=== PATIENT | female | born 1980 | race African-American/Black ===

== ENCOUNTER 2016-11-29 13:20 | Emergency (ER) | payer OTHER ==
[~2016-11-29] VITALS: Ht 162.6 cm; Wt 86.6 kg
[2016-11-29] MEDS ORDERED: VENTOLIN HFA 1818 GM INH (13:37)
[2016-11-29] MEDS ORDERED: IRON325 PO (13:37)
[2016-11-29] MEDS ORDERED: OXYCODONE HCL15 MG PO (13:37)
[2016-11-29] MEDS ORDERED: PHENERGAN 25 MG25 M1 PO (15:21)
[2016-11-29] MEDS ORDERED: PERCOCET 5-3251 EACH PO (15:21)
[2016-11-29 16:00] VITALS: BP 189/110
[2016-12-06] MEDS ORDERED: SENOKOT-S1 TA1 PO (22:50)
[2016-12-06] MEDS ORDERED: NORCO 5-325 TA1 EACH PO (23:02)
== END 2016-11-29 16:28 | disposition home or self-care (01) ==
LOC: ER 13:20
DX: D57.00 Hb-SS disease with crisis, unspecified (principal); J45.909 Unspecified asthma, uncomplicated; Z88.5 Allergy status to narcotic agent; Z88.1 Allergy status to other antibiotic agents; Z88.0 Allergy status to penicillin; Z88.8 Allergy status to other drugs, medicaments and biological substances; F17.200 Nicotine dependence, unspecified, uncomplicated; F15.90 Other stimulant use, unspecified, uncomplicated

== ENCOUNTER 2016-12-07 11:23 | Inpatient (IN) | payer OTHER ==
[~2016-12-07] VITALS: Ht 162.6 cm; Wt 86.6 kg
--- NOTE | ~2016-12-07 | HC ---
[facility] [place] [address] CONSULTATION Name: RAULITO CHAVEZ Room #: 418-P [facility] IN M.R.#: [id number] Admission: 12/07/16 Attend Phys: Ki Gayle DO Discharge: 12/08/16 Date of : 82 Report #: [id number] THIS REPORT FOR: //name// CC: Dr. Ki Patten FAM unknown Ki Gayle DO ADMITTING PHYSICIAN: Ki Gayle DO. PRIMARY CARE PHYSICIAN: Dr. Ki Patten over at [facility]. REASON FOR CONSULTATION: Sickle cell crisis. HISTORY OF PRESENT ILLNESS: The patient is a 36-year-old female with a history of life-long sickle cell, who says that her pain worsened over the last several days after her aunt and also a cousin was murdered. She describes her usual pain as in the chest and abdomen. It also quite often goes to her legs. She describes about 15-20 emergency room visits a year. She does use oxycodone at home. She also reports that she had a history of about 10 years ago on a trial of Hydrea for years that did not work and also something else with sulfate, which I am not sure what that medication was. She denied any fevers or any chills. Did have some slight nausea. No vomiting. No blood in urine or stool. No diarrhea, if I understand correctly. No change in appetite. No nasal suggestions or upper respiratory infection symptoms. No trouble swallowing. No shortness of breath, no wheezing, no chest pain. No urinary frequency or blood in the urine. Does have the aches and pains. No skin rash. Has noticed a small bump underneath the skin in the suprapubic region and I think this is probably like a gland. She states this may be infected; I do not see redness. PAST MEDICAL HISTORY: Past history is notable for the sickle cell disease. She says she has been aware of it all of her life. Again, there are about 15-20 ER visits per year, had the trial of Hydrea when she was down in [place]. Last transfusion was about 4 years ago. It sounds like she had very few transfusions. The patient has a history of sickle cell disease. 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 The patient had declined followup at [facility] in the past, but she did not like their policy about no marijuana usage and I guess she uses marijuana on a somewhat regular basis and also continues to smoke. FAMILY HISTORY: Father from complications of diabetes. Mother at the young age from a heart attack. She has 8 siblings; she is the baby, the youngest one. Three of her siblings have sickle cell disease, one with sickle cell trait and one from a pulmonary embolism. She has 4 children, a 12-year-old with sickle cell disease and I believe, that is a girl; also, a [facility] [address] [address] CONSULTATION Name: RAULITO CHAVEZ Room #: 418-P [facility] IN M.R.#: [id number] Admission: 12/07/16 Attend Phys: Ki Gayle DO Discharge: 12/08/16 Date of : 82 Report #: [id number] 12-year-old, a 7-year-old and a 3-year-old. The 3-year-old has had a DISABILITY EXAMINER shunt, was born prematurely at 25 . ALLERGIES: Reportedly troubles with MORPHINE, maybe ZOFRAN, maybe PENICILLIN and maybe COMPAZINE. Note the patient had been seen in the emergency room here on the and received Percocet and promethazine. Note I have records that she was seen at the Emergency Room on November 30. There she told them that she had previously been managed mostly in [place]. I am not sure if this is true; the patient did not mention [place] to me. PHYSICAL EXAMINATION: VITAL SIGNS: Height is 5 feet 4, 162.6 cm. Weight 191 pounds, it is 86.6 kilograms. Blood pressure is 178/111. It has been elevated through most of the night. O2 sat 96%, respirations 16, pulse 84 and temperature afebrile at 97.5. MOOD: She is pleasant, though somewhat irritated when we ask questions about noncompliance and raise the question about disconnecting her IV fluids, but she was still pleasant. NEUROLOGIC: Face is symmetrical. She is moving all extremities. Oropharynx clear. LUNGS: Clear, without wheezes, rhonchi or rales. CARDIAC: Regular rate. No definite murmurs. LYMPHATICS: No enlarged lymph nodes in the supraclavicular, cervical, axillary or inguinal region. ABDOMEN: Feels fairly soft. No organomegaly. GENITOURINARY: The suprapubic area the patient talks does feel like it may be a subcutaneous cyst of some type. It is maybe about dime sized. It is probably about a centimeter deep. No cutaneous changes that I could see. EXTREMITIES: Without clubbing, cyanosis or edema. LABORATORY DATA: Note that in reviewing the records from , it sounds like they did 2 different sickle screens in 2006 that were unremarkable. Hemoglobin electrophoresis drawn recently had hemolyzed, was not available. They talked with the pathologist over there and it is very unusual that was false negative and it would probably be important next on the patient labs to check a hemoglobin electrophoresis to indeed clarify whether the patient has sickle cell disease or what form or some other form she might have such as a sickle thalassemia. ASSESSMENT AND PLAN: 1. Reported history of sickle cell disease and crisis. Note above that the patient's sickle screen was negative times 2 in 2006 at . Hemoglobin electrophoresis should be drawn if the patient has lab drawn in the future to clarify whether she truly has sickle cell disease or a variant form of it. The patient has a history of difficulties with healthcare interactions. We will [address] [place] [address] CONSULTATION Name: RAULITO CHAVEZ Room #: 418-P [facility] IN M.R.#: [id number] Admission: 12/07/16 Attend Phys: Ki Gayle DO Discharge: 12/08/16 Date of : 82 Report #: [id number] prescribe narcotics cautiously. We will defer followup to Dr. Patten. Unable to truly assess the patient without lab, though I do not on her exam. She does not wince and does not appear to be that uncomfortable during the time we interviewed her or during her exam. 2. Hypertension. Defer to others. 3. Tobaccoism. Encouraged cessation. At this time, I do not have plans to follow the patient. By: [id number] Leonardo Mccullough MD /marco a
[~2016-12-07 11:23] MED LIST: IRON325 PO; NORCO 5-325 TA1 EACH PO; OXYCODONE HCL15 MG PO; PERCOCET 5-3251 EACH PO; PHENERGAN 25 MG25 M1 PO; SENOKOT-S1 TA1 PO; VENTOLIN HFA 1818 GM INH
[2016-12-07 11:24] VITALS: BP 175/112
[2016-12-07 16:10] VITALS: BP 156/106
[2016-12-08 04:55] VITALS: BP 169/111
[2016-12-08 07:18] VITALS: BP 178/111
[2016-12-08] MEDS ORDERED: OXYCODONE HCL15 MG PO (09:43)
[2016-12-08 10:52] VITALS: BP 178/111
== END 2016-12-08 11:20 | disposition home or self-care (01) | DRG 812 ==
LOC: ER 11:23 → EROBS 14:46 → 4E 14:46 → EROBS 14:46 → 4E 15:42
DX: D57.00 Hb-SS disease with crisis, unspecified (principal); I10 Essential (primary) hypertension; G89.29 Other chronic pain; F17.210 Nicotine dependence, cigarettes, uncomplicated; J45.909 Unspecified asthma, uncomplicated; G51.0 Bell's palsy; F12.90 Cannabis use, unspecified, uncomplicated; Z88.6 Allergy status to analgesic agent; Z88.8 Allergy status to other drugs, medicaments and biological substances; Z88.0 Allergy status to penicillin; Z79.899 Other long term (current) drug therapy; Z90.81 Acquired absence of spleen; Z90.49 Acquired absence of other specified parts of digestive tract; Z83.3 Family history of diabetes mellitus; Z82.49 Family history of ischemic heart disease and other diseases of the circulatory system; Z71.6 Tobacco abuse counseling
CPT/HCPCS: 10783

== ENCOUNTER 2017-01-03 15:35 | Emergency (ER) | payer OTHER ==
[~2017-01-03] VITALS: Ht 165.1 cm; Wt 88.5 kg
[2017-01-03] MEDS ORDERED: PERCOCET 10-321 EACH PO (17:19)
[2017-01-03] MEDS ORDERED: LISINOPRIL-HCT1 EAC2 PO (17:44)
[2017-01-03] MEDS ORDERED: XANAX 0.5 MG0.5 M1 PO (17:44)
== END 2017-01-03 17:54 | disposition home or self-care (01) ==
LOC: ER 15:35
DX: D57.00 Hb-SS disease with crisis, unspecified (principal); G89.29 Other chronic pain; J45.909 Unspecified asthma, uncomplicated; F17.210 Nicotine dependence, cigarettes, uncomplicated; F10.99 Alcohol use, unspecified with unspecified alcohol-induced disorder; Z88.5 Allergy status to narcotic agent; Z88.1 Allergy status to other antibiotic agents; Z88.0 Allergy status to penicillin; Z88.8 Allergy status to other drugs, medicaments and biological substances

== ENCOUNTER 2017-01-17 11:36 | Emergency (ER) | payer OTHER ==
[~2017-01-17] VITALS: Ht 160 cm; Wt 86.6 kg
[~2017-01-17 11:36] MED LIST changes: +LISINOPRIL-HCT1 EAC2 PO; +PERCOCET 10-321 EACH PO; +XANAX 0.5 MG0.5 M1 PO
[2017-01-17] MEDS ORDERED: ROXICODONE15 M1 PO (12:11)
[2017-01-17] MEDS ORDERED: OXYCODONE HCL15 MG PO (14:27)
[2017-01-17] MEDS ORDERED: PHENERGAN 25 MG25 M1 PO (14:27)
== END 2017-01-17 15:33 | disposition home or self-care (01) ==
LOC: ER 11:36
DX: D57.00 Hb-SS disease with crisis, unspecified (principal); J45.909 Unspecified asthma, uncomplicated; F17.210 Nicotine dependence, cigarettes, uncomplicated; F10.99 Alcohol use, unspecified with unspecified alcohol-induced disorder; Z88.5 Allergy status to narcotic agent; Z88.1 Allergy status to other antibiotic agents; Z88.8 Allergy status to other drugs, medicaments and biological substances